=== PATIENT | female | born 1945 | race Caucasian/White ===

== ENCOUNTER 2022-06-09 08:57 | Emergency (ER) | payer OTHER ==
[~2022-06-09] VITALS: Ht 162.6 cm; Wt 63.0 kg
[2022-06-09] MEDS ORDERED: SODIUM CHLORIDE 0.9% 1,000 ML IV ONE (10:30)
[2022-06-09 11:18] LABS: Urine Bacteria MOD /hpf (None Seen); Urine Blood TRACE /uL (Negative); Urine Budding Yeast LOADED /hpf (None Seen); Urine Mucus FEW (None Seen); Urine Specific Gravity 1.022 (1.001-1.035); Urine WBC 146 /hpf (0 - 5)
[2022-06-09 11:31] LABS: Albumin 4.2 g/dL (3.4-5.0); Calcium 9.9 mg/dL (8.5-10.1); Potassium 4.3 mmol/L (3.5-5.1)
[2022-06-09 11:36] LABS: BUN/Creatinine Ratio 24.4; Bilirubin, Total 0.5 mg/dL (0.2-1.0); Total Protein 8.1 g/dL (6.4-8.2)
[2022-06-09 12:06] LABS: Basophils # (auto) 0.1 10 ^3/uL (0-0.2); Basophils % (auto) 1.1 % (0.0-2.0); Eosinophils # (auto) 0 10 ^3/uL (0-0.8); Eosinophils % (auto) 0.2 % (0.0-7.0); Hemoglobin 14.6 g/dL (12.2-16.2); Lymphocytes # (auto) 1.8 10 ^3/uL (0.4-5.4); Mean Corpuscular Hemoglobin 31.2 pg (28.0-32.0); Mean Corpuscular Hgb Conc. 33.2 g/dL (32.0-36.0); Monocytes # (auto) 0.6 10 ^3/uL (0-1.3); Monocytes % (auto) 6.3 % (0.0-12.0); Neutrophils # (auto) 6.8 10 ^3/uL (1.6-8.6); Neutrophils % (auto) 73.4 % (37.0-80.0); Nucleated Red Blood Cells % 0.2 %; Red Blood Cells 4.68 10^6/uL (4.0-5.20); Red Cell Distribution Width 13.8 % (11.8-14.3); White Blood Cell 9.2 10^3/uL (4.4-10.8)
[2022-06-09] MEDS ORDERED: ONDANSETRON HCL 4 MG/2 ML VIAL IV ONE ×3 (14:00→23:00)
[2022-06-09] MEDS ORDERED: MORPHINE SULFATE INJ 2 MG/ml SYRG IV ONE (14:00)
[2022-06-09] MEDS ORDERED: cefTRIAXone 1GM/50ML D5W 50 ML IV ONE ×2 (14:15→14:30)
[2022-06-09] MEDS ORDERED: HYDROmorphone HCL 2 MG/ML VL/or syr IV ONE ×2 (18:45→23:00)
[2022-06-10] MEDS ORDERED: ONDANSETRON HCL 4 MG/2 ML VIAL IV ONE (03:45)
[2022-06-10] MEDS ORDERED: HYDROmorphone HCL 2 MG/ML VL/or syr IV ONE (03:45)
[2022-06-10 03:47] VITALS: BP 116/54
== END 2022-06-10 03:40 | disposition short-term general hospital (02) ==
LOC: ER 08:57 → EDBD 08:57 → ER 06-10 03:40
DX: G93.41 Metabolic encephalopathy (principal); R53.1 Weakness; N39.0 Urinary tract infection, site not specified; E11.9 Type 2 diabetes mellitus without complications; Z90.710 Acquired absence of both cervix and uterus; Z20.822 Contact with and (suspected) exposure to COVID-19
CPT/HCPCS: 36415; 70450; 71250; 72192; 80053; 81001; 82962; 83605; 83880; 84484; 87040; 87426; 93005; 96365; 96375; 96376; 99285; J0696; J1170; J2270; J2405; J7030

== ENCOUNTER 2022-06-11 21:49 | Emergency (ER) | payer OTHER ==
[~2022-06-11] VITALS: Ht 165.1 cm; Wt 154.0 kg
[2022-06-11] MEDS ORDERED: TETANUS-DIPTH-ACEL PERTUSSIS 0.5ML SYR Tdap IM ONE (22:45)
[2022-06-11 23:18] LABS: Basophils # (auto) 0 10 ^3/uL (0-0.2); Basophils % (auto) 0.4 % (0.0-2.0); Eosinophils # (auto) 0 10 ^3/uL (0-0.8); Eosinophils % (auto) 0.1 % (0.0-7.0); Hematocrit 42.2 % (36.0-46.0); Hemoglobin 13.8 g/dL (12.2-16.2); Lymphocytes # (auto) 1.2 10 ^3/uL (0.4-5.4); Lymphocytes % (auto) 11.8 % (10.0-50.0); Mean Corpuscular Hemoglobin 30.6 pg (28.0-32.0); Mean Corpuscular Hgb Conc. 32.6 g/dL (32.0-36.0); Monocytes # (auto) 0.6 10 ^3/uL (0-1.3); Monocytes % (auto) 5.5 % (0.0-12.0); Neutrophils # (auto) 8.5 10 ^3/uL (1.6-8.6); Neutrophils % (auto) 82.2 % (37.0-80.0); Red Blood Cells 4.49 10^6/uL (4.0-5.20); Red Cell Distribution Width 13.5 % (11.8-14.3); White Blood Cell 10.3 10^3/uL (4.4-10.8)
[2022-06-11 23:33] LABS: INR 0.96 (0.9-1.15); Partial Thromboplastin Time 25.4 sec (24.6-33.4)
[2022-06-11 23:38] LABS: Albumin 3.6 g/dL (3.4-5.0); Calcium 8.9 mg/dL (8.5-10.1); Potassium 4.3 mmol/L (3.5-5.1)
[2022-06-11 23:41] LABS: BUN/Creatinine Ratio 27.4; Bilirubin, Total 0.5 mg/dL (0.2-1.0); Total Protein 7.1 g/dL (6.4-8.2)
[2022-06-12 01:01] VITALS: BP 159/71
== END 2022-06-12 02:44 | disposition home or self-care (01) ==
LOC: EDBD 21:49 → ER 21:49
DX: S01.01XA Laceration without foreign body of scalp, initial encounter (principal); S50.311A Abrasion of right elbow, initial encounter; R51.9 Headache, unspecified; E11.9 Type 2 diabetes mellitus without complications; R94.31 Abnormal electrocardiogram [ECG] [EKG]; Z90.710 Acquired absence of both cervix and uterus; W01.0XXA Fall on same level from slipping, tripping and stumbling without subsequent striking against object, initial encounter; Y93.89 Activity, other specified; Y92.89 Other specified places as the place of occurrence of the external cause; Y99.8 Other external cause status
CPT/HCPCS: 12001; 36415; 70450; 71045; 72125; 73080; 80053; 84484; 85025; 85610; 85730; 90471; 90715; 93005

== ENCOUNTER 2022-06-16 07:07 | Inpatient (IN) | payer OTHER ==
[2022-06-16] VITALS (31 sets, daily range): BP systolic 85–187; BP diastolic 20–75
[~2022-06-16] VITALS: Ht 165.1 cm; Wt 73.0 kg
[2022-06-16] MEDS: SODIUM CHLORIDE 0.9% 1,000 ML IV SCH ×2 (01:46→13:37)
[2022-06-16] MEDS ORDERED: IOHEXOL 350 MG/ML 100ML IJ ONE (07:42)
[2022-06-16] MEDS ORDERED: MORPHINE SULFATE 4 MG/ML SYR/VIAL IV ONE (07:45)
[2022-06-16] MEDS ORDERED: ONDANSETRON HCL 4 MG/2 ML VIAL IV ONE (07:45)
[2022-06-16 08:09] LABS: Basophils # (auto) 0.1 10 ^3/uL (0-0.2); Eosinophils # (auto) 0.1 10 ^3/uL (0-0.8); Mean Corpuscular Hemoglobin 30.7 pg (28.0-32.0)
[2022-06-16 08:10] LABS: Basophils % (auto) 0.5 % (0.0-2.0); Eosinophils % (auto) 0.3 % (0.0-7.0); Hematocrit 51.2 % (36.0-46.0); Hemoglobin 15.4 g/dL (12.2-16.2); Lymphocytes # (auto) 2.8 10 ^3/uL (0.4-5.4); Lymphocytes % (auto) 13.5 % (10.0-50.0); Mean Corpuscular Hgb Conc. 30.1 g/dL (32.0-36.0); Mean Corpuscular Volume 101.8 fL (80.0-100.0); Monocytes # (auto) 0.9 10 ^3/uL (0-1.3); Monocytes % (auto) 4.1 % (0.0-12.0); Neutrophils # (auto) 17.2 10 ^3/uL (1.6-8.6); Neutrophils % (auto) 81.6 % (37.0-80.0); Red Blood Cells 5.03 10^6/uL (4.0-5.20)
[2022-06-16] MEDS ORDERED: SODIUM CHLORIDE 0.9% 1,000 ML IV ONE ×3 (08:15→09:45)
[2022-06-16] MEDS ORDERED: MIDAZOLAM HCL 2MG/2ML 2ml VIAL (1mg/ml) IV ONE (08:15)
[2022-06-16 08:26] LABS: Albumin 3.9 g/dL (3.4-5.0); BUN/Creatinine Ratio 16.4; Calcium 9.7 mg/dL (8.5-10.1); Potassium 4.6 mmol/L (3.5-5.1)
[2022-06-16 08:28] LABS: Bilirubin, Total 0.4 mg/dL (0.2-1.0); Total Protein 8.2 g/dL (6.4-8.2)
[2022-06-16] MEDS ORDERED: SODIUM BICARBONATE 8.4 % INJ 50ML VIAL IV ONE (08:45)
[2022-06-16] MEDS ORDERED: ETOMIDATE (2MG/ML) 20ML VIAL IV ONE (09:00)
[2022-06-16] MEDS ORDERED: SUCCINYLCHOLINE CHLORIDE 20 MG/ML 10ML VIAL IV ONE (09:00)
[2022-06-16] MEDS: MIDAZOLAM DRIP 50 mg/50mL 50 ML IV SCH ×3 (09:10→23:42)
[2022-06-16 09:27] LABS: Lactic Acid w/Reflex 5.8 mmol/L (0.4-2.0)
[2022-06-16 09:45] LABS: Urine Bacteria FEW /hpf (None Seen); Urine Blood 1+ /uL (Negative); Urine Budding Yeast LOADED /hpf (None Seen); Urine Mucus FEW (None Seen); Urine Specific Gravity 1.037 (1.001-1.035); Urine WBC 53 /hpf (0 - 5)
[2022-06-16] MEDS ORDERED: INSULIN LANTUS (GLARGINE) 1 /0.01ml (100units/ml) SC ONE (09:45)
[2022-06-16] MEDS ORDERED: DEXTROSE (50%) 50ML SYRG IV PRN (09:45)
[2022-06-16] MEDS ORDERED: cefTRIAXone 1GM/50ML D5W 50 ML IV ONE (10:15)
[2022-06-16] MEDS ORDERED: AZITHROMYCIN 500MG/ 250ML 250 ML IV ONE (10:15)
[2022-06-16] MEDS: InsuLIN R (HUMAN) 100 UNITS in SODIUM CHL 0.9% 99 ML IV SCH (10:56)
[2022-06-16] MEDS: ACCU-CHEK COMFORT CURVE STRIP VI SCH ×9 (10:56→22:36)
[2022-06-16] MEDS: fentaNYL Drip 2500mCg/250mlNS 250 ML IV SCH (11:01)
[2022-06-16] MEDS ORDERED: SODIUM BICARB 50ML SYR 150 ML in SODIUM CHLORIDE 0.9% 1,000 ML IV ONE (12:15)
[2022-06-16] MEDS ORDERED: SODIUM BICARB 50ML SYR 150 ML in SOD CHL 0.45% 1,000 ML IV ONE (12:45)
[2022-06-16] MEDS ORDERED: ONDANSETRON HCL 4 MG/2 ML VIAL IV PRN (13:30)
[2022-06-16] MEDS ORDERED: DOCUSATE SOD 100 MG CAP PO PRN (13:30)
[2022-06-16] MEDS ORDERED: MORPHINE SULFATE INJ 2 MG/ml SYRG IV PRN (13:30)
[2022-06-17] VITALS (95 sets, daily range): BP systolic 74–143; BP diastolic 26–67
[2022-06-17] MEDS: InsuLIN R (HUMAN) 100 UNITS in SODIUM CHL 0.9% 99 ML IV SCH ×2
[2022-06-17] MEDS: ACCU-CHEK COMFORT CURVE STRIP VI SCH ×10 (00:10→17:44)
[2022-06-17] MEDS: fentaNYL Drip 2500mCg/250mlNS 250 ML IV SCH ×2 (01:56→18:18)
[2022-06-17 02:10] LABS: Anion Gap 10 (5-15); BUN/Creatinine Ratio 39.6; Blood Urea Nitrogen 19 mg/dL (7-18); Calcium 7.3 mg/dL (8.5-10.1); Carbon Dioxide 19 mmol/L (21-32); Chloride 119 mmol/L (98-107); GFR African American 161 mL/min; GFR Non-African American 133 mL/min; Glucose 123 mg/dL (74-106); Potassium 3.7 mmol/L (3.5-5.1); Sodium 148 mmol/L (136-145)
[2022-06-17] MEDS ORDERED: InsuLIN R (HUMAN) 100 UNITS in SODIUM CHL 0.9% 99 ML IV SCH ×2 (03:30→04:45)
[2022-06-17] MEDS: MIDAZOLAM DRIP 50 mg/50mL 50 ML IV SCH (03:40)
[2022-06-17 04:41] LABS: Basophils # (auto) 0 10 ^3/uL (0-0.2); Basophils % (auto) 0.3 % (0.0-2.0); Eosinophils # (auto) 0 10 ^3/uL (0-0.8); Eosinophils % (auto) 0.1 % (0.0-7.0); Hematocrit 34.6 % (36.0-46.0); Hemoglobin 11.1 g/dL (12.2-16.2); Lymphocytes # (auto) 1.2 10 ^3/uL (0.4-5.4); Lymphocytes % (auto) 9.1 % (10.0-50.0); Mean Corpuscular Hemoglobin 30.1 pg (28.0-32.0); Mean Corpuscular Hgb Conc. 31.9 g/dL (32.0-36.0); Mean Corpuscular Volume 94.1 fL (80.0-100.0); Monocytes # (auto) 1.2 10 ^3/uL (0-1.3); Monocytes % (auto) 9.3 % (0.0-12.0); Neutrophils # (auto) 10.4 10 ^3/uL (1.6-8.6); Neutrophils % (auto) 81.2 % (37.0-80.0); Red Blood Cells 3.68 10^6/uL (4.0-5.20); Red Cell Distribution Width 13.7 % (11.8-14.3); White Blood Cell 12.9 10^3/uL (4.4-10.8)
[2022-06-17] MEDS ORDERED: DEXTROSE (50%) 50ML SYRG IV PRN ×2 (04:45→15:45)
[2022-06-17 04:55] LABS: Alanine Aminotransferase 13 U/L (13-56); Albumin 2.3 g/dL (3.4-5.0); Anion Gap 9 (5-15); Aspartate Aminotransferase 14 U/L (15-37); Blood Urea Nitrogen 18 mg/dL (7-18); Calcium 7.7 mg/dL (8.5-10.1); Carbon Dioxide 22 mmol/L (21-32); Chloride 118 mmol/L (98-107); GFR African American 153 mL/min; GFR Non-African American 127 mL/min; Glucose 129 mg/dL (74-106); Potassium 3.4 mmol/L (3.5-5.1); Sodium 149 mmol/L (136-145)
[2022-06-17 04:58] LABS: Alkaline Phosphatase 93 U/L (45-117); Bilirubin, Total 0.3 mg/dL (0.2-1.0); Total Protein 5.1 g/dL (6.4-8.2)
[2022-06-17] MEDS: SODIUM CHLORIDE 0.9% 1,000 ML IV SCH ×2 (05:00→14:48)
[2022-06-17] MEDS ORDERED: InsuLIN REG 1unit/0.01ml Soln (100units/ml) SC SCH (07:00)
[2022-06-17] MEDS ORDERED: CEFP200T15 PO (09:29)
[2022-06-17] MEDS ORDERED: CALC-437 OR (09:29)
[2022-06-17] MEDS ORDERED: CLOP75TA70 PO (09:29)
[2022-06-17] MEDS ORDERED: EMPA1TAB3 PO (09:29)
[2022-06-17] MEDS ORDERED: LISI2.5T47 PO (09:29)
[2022-06-17] MEDS ORDERED: VENL37.588 PO (09:29)
[2022-06-17] MEDS ORDERED: TRAZ100T3 PO (09:29)
[2022-06-17] MEDS ORDERED: GLIM-5 PO (09:29)
[2022-06-17] MEDS ORDERED: TAMO20TA9 PO (09:29)
[2022-06-17] MEDS ORDERED: ATOR10TA52 PO (09:29)
[2022-06-17] MEDS: ENOXAPARIN SOD 40 MG/0.4 ML SYRINGE SC SCH (10:06)
[2022-06-17] MEDS: INSULIN LANTUS (GLARGINE) 1 /0.01ml (100units/ml) SC SCH (10:10)
[2022-06-17] MEDS ORDERED: POTASSIUM EFFERVESENT TAB 25 MEQ GT ONE (15:45)
[2022-06-17] MEDS ORDERED: AZITHROMYCIN 500MG/ 250ML 250 ML IV ONE (15:45)
[2022-06-17] MEDS ORDERED: cefTRIAXone 1GM/50ML D5W 50 ML IV ONE (15:45)
[2022-06-17] MEDS ORDERED: FAMOTIDINE (10MG/ML) 2ML VL IV ONE (15:45)
[2022-06-17] MEDS: SOD CHL 0.45% WITH 20MEQ KCL 1,000 ML IV SCH (16:15)
[2022-06-17] MEDS: InsuLIN REG 1unit/0.01ml Soln (100units/ml) SC SCH (17:44)
[2022-06-18] VITALS (70 sets, daily range): BP systolic 90–192; BP diastolic 26–103
[2022-06-18] MEDS: MIDAZOLAM DRIP 50 mg/50mL 50 ML IV SCH (01:09)
[2022-06-18 03:52] LABS: Basophils # (auto) 0.1 10 ^3/uL (0-0.2); Basophils % (auto) 0.4 % (0.0-2.0); Eosinophils # (auto) 0 10 ^3/uL (0-0.8); Eosinophils % (auto) 0.2 % (0.0-7.0); Hematocrit 36.1 % (36.0-46.0); Hemoglobin 11.3 g/dL (12.2-16.2); Lymphocytes # (auto) 1.7 10 ^3/uL (0.4-5.4); Lymphocytes % (auto) 12.5 % (10.0-50.0); Mean Corpuscular Hemoglobin 30.5 pg (28.0-32.0); Mean Corpuscular Hgb Conc. 31.3 g/dL (32.0-36.0); Mean Corpuscular Volume 97.4 fL (80.0-100.0); Monocytes % (auto) 7.9 % (0.0-12.0); Neutrophils # (auto) 10.6 10 ^3/uL (1.6-8.6); Red Blood Cells 3.71 10^6/uL (4.0-5.20); Red Cell Distribution Width 14.6 % (11.8-14.3); White Blood Cell 13.4 10^3/uL (4.4-10.8)
[2022-06-18 04:09] LABS: Potassium 3.6 mmol/L (3.5-5.1)
[2022-06-18 04:16] LABS: BUN/Creatinine Ratio 34.5; Calcium 8.6 mg/dL (8.5-10.1)
[2022-06-18] MEDS: SOD CHL 0.45% WITH 20MEQ KCL 1,000 ML IV SCH (05:05)
[2022-06-18] MEDS: InsuLIN REG 1unit/0.01ml Soln (100units/ml) SC SCH ×4 (06:00→18:00)
[2022-06-18] MEDS: ACCU-CHEK COMFORT CURVE STRIP VI SCH ×4 (06:04→18:01)
[2022-06-18] MEDS ORDERED: METOPROLOL TARTRATE 1MG/1ML-5ML VIAL IV ONE (08:45)
[2022-06-18] MEDS: cefTRIAXone 1GM/50ML D5W 50 ML IV SCH (08:53)
[2022-06-18] MEDS ORDERED: ALBUTEROL SULF 2.5 MG/0.5ML(0.5%) NEB SOLN ONE (09:19)
[2022-06-18] MEDS ORDERED: ALBUTEROL SULF 2.5 MG/0.5ML(0.5%) NEB SOLN NEB ONE (09:45)
[2022-06-18] MEDS: FAMOTIDINE (10MG/ML) 2ML VL IV SCH (10:31)
[2022-06-18] MEDS: ENOXAPARIN SOD 40 MG/0.4 ML SYRINGE SC SCH (10:32)
[2022-06-18] MEDS: AZITHROMYCIN 500MG/ 250ML 250 ML IV SCH (10:33)
[2022-06-18] MEDS: INSULIN LANTUS (GLARGINE) 1 /0.01ml (100units/ml) SC SCH (10:50)
[2022-06-18] MEDS: HYDROcodone-ACET 5/325MG TAB PO PRN ×2 (13:54→20:00)
[2022-06-18] MEDS ORDERED: ACETAMINOPHEN 500 MG TAB PO PRN (15:15)
[2022-06-18] MEDS: LACTULOSE 20Gm/30ML SOLN PO SCH (17:58)
[2022-06-18] MEDS: FREE WATER GT SCH (17:59)
[2022-06-18] MEDS ORDERED: LACTULOSE 20Gm/30ML SOLN PO SCH (18:00)
[2022-06-18] MEDS: LABETALOL HCL 5 MG/ML 4ML SYRINGE IV PRN ×2 (18:22→22:30)
[2022-06-18] MEDS: Glucerna 1.2 Cal 1Liter BOTTLE GT SCH (20:00)
[2022-06-19] VITALS (38 sets, daily range): BP systolic 98–222; BP diastolic 43–119
[2022-06-19] MEDS: LABETALOL HCL 5 MG/ML 4ML SYRINGE IV PRN ×3 (02:15→10:38)
[2022-06-19 04:45] LABS: Basophils # (auto) 0.1 10 ^3/uL (0-0.2); Basophils % (auto) 0.6 % (0.0-2.0); Eosinophils # (auto) 0 10 ^3/uL (0-0.8); Eosinophils % (auto) 0.3 % (0.0-7.0); Hematocrit 36.1 % (36.0-46.0); Hemoglobin 11.8 g/dL (12.2-16.2); Lymphocytes # (auto) 1.4 10 ^3/uL (0.4-5.4); Lymphocytes % (auto) 9.4 % (10.0-50.0); Mean Corpuscular Hemoglobin 30.6 pg (28.0-32.0); Mean Corpuscular Hgb Conc. 32.6 g/dL (32.0-36.0); Mean Corpuscular Volume 93.9 fL (80.0-100.0); Monocytes # (auto) 0.9 10 ^3/uL (0-1.3); Monocytes % (auto) 6.1 % (0.0-12.0); Neutrophils # (auto) 12.1 10 ^3/uL (1.6-8.6); Neutrophils % (auto) 83.6 % (37.0-80.0); Nucleated Red Blood Cells % 0.1 %; Red Blood Cells 3.85 10^6/uL (4.0-5.20); Red Cell Distribution Width 13.9 % (11.8-14.3); White Blood Cell 14.5 10^3/uL (4.4-10.8)
[2022-06-19 04:52] LABS: Potassium 3.2 mmol/L (3.5-5.1)
[2022-06-19 05:00] LABS: Albumin 2.4 g/dL (3.4-5.0); Bilirubin, Total 0.4 mg/dL (0.2-1.0); Calcium 8.8 mg/dL (8.5-10.1)
[2022-06-19] MEDS: LACTULOSE 20Gm/30ML SOLN PO SCH ×2 (06:00)
[2022-06-19] MEDS: FREE WATER GT SCH ×4 (06:00→18:55)
[2022-06-19] MEDS: ACCU-CHEK COMFORT CURVE STRIP VI SCH ×4 (06:03→17:21)
[2022-06-19] MEDS: InsuLIN REG 1unit/0.01ml Soln (100units/ml) SC SCH ×4 (06:04→17:36)
[2022-06-19] MEDS: cefTRIAXone 1GM/50ML D5W 50 ML IV SCH (10:41)
[2022-06-19] MEDS: ENOXAPARIN SOD 40 MG/0.4 ML SYRINGE SC SCH (10:42)
[2022-06-19] MEDS: AZITHROMYCIN 500MG/ 250ML 250 ML IV SCH (10:42)
[2022-06-19] MEDS: FAMOTIDINE (10MG/ML) 2ML VL IV SCH (10:42)
[2022-06-19] MEDS: INSULIN LANTUS (GLARGINE) 1 /0.01ml (100units/ml) SC SCH (10:56)
[2022-06-19] MEDS ORDERED: LISINOPRIL 10 MG TAB PO ONE (15:15)
[2022-06-19] MEDS ORDERED: PIPERACILLIN-TAZOB 3.375GM 100 ML IV ONE (15:15)
[2022-06-19] MEDS: POTASSIUM CHL 20MEQ/100ML 100 ML IV SCH ×2 (17:39→20:00)
[2022-06-19] MEDS: Glucerna 1.2 Cal 1Liter BOTTLE GT SCH (20:00)
[2022-06-19] MEDS: PIPERACILLIN-TAZOB 3.375GM 100 ML IV SCH (22:00)
[2022-06-20] VITALS (22 sets, daily range): BP systolic 93–185; BP diastolic 38–74
[2022-06-20] MEDS: HYDROcodone-ACET 5/325MG TAB PO PRN ×2 (02:02→18:02)
[2022-06-20 04:17] LABS: Basophils # (auto) 0 10 ^3/uL (0-0.2); Basophils % (auto) 0.2 % (0.0-2.0); Eosinophils # (auto) 0 10 ^3/uL (0-0.8); Hematocrit 37.4 % (36.0-46.0); Hemoglobin 12.4 g/dL (12.2-16.2); Lymphocytes # (auto) 1.2 10 ^3/uL (0.4-5.4); Lymphocytes % (auto) 11.9 % (10.0-50.0); Mean Corpuscular Hemoglobin 31.3 pg (28.0-32.0); Mean Corpuscular Hgb Conc. 33.2 g/dL (32.0-36.0); Mean Corpuscular Volume 94.3 fL (80.0-100.0); Monocytes # (auto) 0.8 10 ^3/uL (0-1.3); Monocytes % (auto) 7.6 % (0.0-12.0); Neutrophils # (auto) 7.9 10 ^3/uL (1.6-8.6); Neutrophils % (auto) 80.3 % (37.0-80.0); Nucleated Red Blood Cells % 0.1 %; Red Blood Cells 3.96 10^6/uL (4.0-5.20); Red Cell Distribution Width 13.8 % (11.8-14.3); White Blood Cell 9.9 10^3/uL (4.4-10.8)
[2022-06-20 04:36] LABS: INR 0.97 (0.9-1.15); Partial Thromboplastin Time 22.3 sec (24.6-33.4)
[2022-06-20 04:43] LABS: Calcium 8.9 mg/dL (8.5-10.1); Potassium 3.5 mmol/L (3.5-5.1)
[2022-06-20 04:47] LABS: BUN/Creatinine Ratio 36.1
[2022-06-20] MEDS: PIPERACILLIN-TAZOB 3.375GM 100 ML IV SCH ×3 (05:53→22:30)
[2022-06-20] MEDS: FREE WATER GT SCH ×4 (06:00→18:02)
[2022-06-20] MEDS: ACCU-CHEK COMFORT CURVE STRIP VI SCH ×4 (06:15→18:02)
[2022-06-20] MEDS: InsuLIN REG 1unit/0.01ml Soln (100units/ml) SC SCH ×4 (06:17→18:07)
[2022-06-20] MEDS: ENOXAPARIN SOD 40 MG/0.4 ML SYRINGE SC SCH (10:00)
[2022-06-20] MEDS: FAMOTIDINE (10MG/ML) 2ML VL IV SCH (10:23)
[2022-06-20] MEDS: LISINOPRIL 10 MG TAB PO SCH (10:25)
[2022-06-20] MEDS: INSULIN LANTUS (GLARGINE) 1 /0.01ml (100units/ml) SC SCH (12:10)
[2022-06-21] MEDS: ACCU-CHEK COMFORT CURVE STRIP VI SCH ×5 (00:22→23:50)
[2022-06-21] MEDS: FREE WATER GT SCH ×5 (00:30→23:55)
[2022-06-21] MEDS: InsuLIN REG 1unit/0.01ml Soln (100units/ml) SC SCH ×5 (00:35→23:52)
[2022-06-21 05:07] VITALS: BP 138/65
[2022-06-21] MEDS: PIPERACILLIN-TAZOB 3.375GM 100 ML IV SCH ×3 (06:17→22:05)
[2022-06-21 06:33] LABS: Potassium 3.5 mmol/L (3.5-5.1)
[2022-06-21 06:41] LABS: BUN/Creatinine Ratio 64.3; Calcium 8.5 mg/dL (8.5-10.1)
[2022-06-21] MEDS: HYDROcodone-ACET 5/325MG TAB PO PRN ×2 (07:45→20:09)
[2022-06-21 09:00] VITALS: BP 133/55
[2022-06-21] MEDS: FAMOTIDINE (10MG/ML) 2ML VL IV SCH (09:27)
[2022-06-21] MEDS: LISINOPRIL 10 MG TAB PO SCH (09:27)
[2022-06-21] MEDS: ENOXAPARIN SOD 40 MG/0.4 ML SYRINGE SC SCH (09:27)
[2022-06-21] MEDS: INSULIN LANTUS (GLARGINE) 1 /0.01ml (100units/ml) SC SCH (09:33)
[2022-06-21] MEDS: LABETALOL HCL 5 MG/ML 4ML SYRINGE IV PRN (12:33)
[2022-06-21 13:00] VITALS: BP 193/69
[2022-06-21 15:31] VITALS: BP 109/53
[2022-06-21 17:00] VITALS: BP 143/54
[2022-06-21 22:00] VITALS: BP 139/73
[2022-06-22 05:00] VITALS: BP 125/67
[2022-06-22] MEDS: FREE WATER GT SCH ×4 (06:00→23:40)
[2022-06-22] MEDS: PIPERACILLIN-TAZOB 3.375GM 100 ML IV SCH ×3 (06:21→21:36)
[2022-06-22] MEDS: HYDROcodone-ACET 5/325MG TAB PO PRN ×2 (06:22→19:49)
[2022-06-22] MEDS: ACCU-CHEK COMFORT CURVE STRIP VI SCH ×4 (06:22→23:40)
[2022-06-22] MEDS: InsuLIN REG 1unit/0.01ml Soln (100units/ml) SC SCH ×4 (06:24→23:46)
[2022-06-22 09:00] VITALS: BP 111/64
[2022-06-22] MEDS: FAMOTIDINE (10MG/ML) 2ML VL IV SCH (09:21)
[2022-06-22] MEDS: ENOXAPARIN SOD 40 MG/0.4 ML SYRINGE SC SCH (09:21)
[2022-06-22] MEDS: LISINOPRIL 10 MG TAB PO SCH (09:22)
[2022-06-22] MEDS: INSULIN LANTUS (GLARGINE) 1 /0.01ml (100units/ml) SC SCH (09:26)
[2022-06-22 10:45] LABS: Basophils # (auto) 0.1 10 ^3/uL (0-0.2); Basophils % (auto) 0.6 % (0.0-2.0); Eosinophils # (auto) 0.1 10 ^3/uL (0-0.8); Eosinophils % (auto) 1.7 % (0.0-7.0); Hematocrit 31.2 % (36.0-46.0); Hemoglobin 10.5 g/dL (12.2-16.2); Lymphocytes # (auto) 1.5 10 ^3/uL (0.4-5.4); Lymphocytes % (auto) 17.6 % (10.0-50.0); Mean Corpuscular Hemoglobin 31.5 pg (28.0-32.0); Mean Corpuscular Hgb Conc. 33.5 g/dL (32.0-36.0); Monocytes # (auto) 0.8 10 ^3/uL (0-1.3); Monocytes % (auto) 9.7 % (0.0-12.0); Neutrophils # (auto) 5.8 10 ^3/uL (1.6-8.6); Neutrophils % (auto) 70.4 % (37.0-80.0); Red Blood Cells 3.32 10^6/uL (4.0-5.20); Red Cell Distribution Width 13.8 % (11.8-14.3); White Blood Cell 8.3 10^3/uL (4.4-10.8)
[2022-06-22] MEDS: PANTOPRAZOLE 40 MG/10 ML VIAL INJ IV SCH ×2 (11:08→21:36)
[2022-06-22] MEDS: SODIUM CHLORIDE 0.9% 1,000 ML IV SCH ×2 (11:08→23:05)
[2022-06-22 11:22] LABS: Bilirubin, Total 0.4 mg/dL (0.2-1.0)
[2022-06-22 11:24] LABS: Potassium 2.8 mmol/L (3.5-5.1)
[2022-06-22] MEDS ORDERED: POTASSIUM CHLORIDE 40 MEQ, LIDOCAINE 1% (LOCAL ANESTH.) 4 ML in SODIUM CHL 0.9% 250 ML IV ONE (11:30)
[2022-06-22 13:00] VITALS: BP 122/44
[2022-06-22 17:00] VITALS: BP 104/46
[2022-06-22 22:00] VITALS: BP 142/77
[2022-06-23] MEDS: HYDROcodone-ACET 5/325MG TAB PO PRN ×3 (02:08→20:43)
[2022-06-23 05:00] VITALS: BP 136/61
[2022-06-23] MEDS: FREE WATER GT SCH (05:00)
[2022-06-23] MEDS: PIPERACILLIN-TAZOB 3.375GM 100 ML IV SCH ×3 (05:01→23:05)
[2022-06-23 05:29] LABS: Basophils # (auto) 0 10 ^3/uL (0-0.2); Basophils % (auto) 0.7 % (0.0-2.0); Eosinophils # (auto) 0.2 10 ^3/uL (0-0.8); Eosinophils % (auto) 2.7 % (0.0-7.0); Hemoglobin 10.4 g/dL (12.2-16.2); Lymphocytes # (auto) 1.7 10 ^3/uL (0.4-5.4); Lymphocytes % (auto) 24.6 % (10.0-50.0); Mean Corpuscular Hemoglobin 31.1 pg (28.0-32.0); Mean Corpuscular Hgb Conc. 33.4 g/dL (32.0-36.0); Monocytes # (auto) 0.7 10 ^3/uL (0-1.3); Monocytes % (auto) 10.2 % (0.0-12.0); Neutrophils # (auto) 4.2 10 ^3/uL (1.6-8.6); Neutrophils % (auto) 61.8 % (37.0-80.0); Nucleated Red Blood Cells % 0.1 %; Red Blood Cells 3.33 10^6/uL (4.0-5.20); Red Cell Distribution Width 13.6 % (11.8-14.3); White Blood Cell 6.8 10^3/uL (4.4-10.8)
[2022-06-23 05:36] LABS: Calcium 7.7 mg/dL (8.5-10.1)
[2022-06-23] MEDS: ACCU-CHEK COMFORT CURVE STRIP VI SCH ×4 (06:16→23:56)
[2022-06-23] MEDS: InsuLIN REG 1unit/0.01ml Soln (100units/ml) SC SCH ×5 (06:21→23:52)
[2022-06-23] MEDS: PANTOPRAZOLE 40 MG/10 ML VIAL INJ IV SCH ×2 (08:56→21:39)
[2022-06-23] MEDS: INSULIN LANTUS (GLARGINE) 1 /0.01ml (100units/ml) SC SCH (08:59)
[2022-06-23 09:00] VITALS: BP 104/52
[2022-06-23] MEDS ORDERED: LIDOCAINE VISCOUS 2% 15ML UD ONE (10:31)
[2022-06-23] MEDS ORDERED: SODIUM CHLORIDE LOCK 10 ML ONE (10:31)
[2022-06-23] MEDS: fentaNYL CITRATE 100 MCG/2 ML VL ONE ×2 (11:23→11:26)
[2022-06-23] MEDS: diphenhdrAMINE HCL 50 MG/1 ML VL ONE ×2 (11:23→11:25)
[2022-06-23] MEDS: MIDAZOLAM HCL 5 MG/ML-1ML VIAL ONE ×2 (11:23→11:27)
[2022-06-23] MEDS ORDERED: GOLYTELY 4L KIT PO ONE (12:00)
[2022-06-23] MEDS ORDERED: POTASSIUM CHLORIDE 40 MEQ, LIDOCAINE 1% (LOCAL ANESTH.) 4 ML in SODIUM CHL 0.9% 250 ML IV ONE (12:15)
[2022-06-23] MEDS: SODIUM CHLORIDE 0.9% 1,000 ML IV SCH (12:37)
[2022-06-23 17:00] VITALS: BP 103/73
[2022-06-23 21:52] VITALS: BP 128/50
[2022-06-24] MEDS: HYDROcodone-ACET 5/325MG TAB PO PRN ×3 (01:39→17:15)
[2022-06-24] MEDS: SODIUM CHLORIDE 0.9% 1,000 ML IV SCH (01:45)
[2022-06-24 04:58] VITALS: BP 136/46
[2022-06-24] MEDS: InsuLIN REG 1unit/0.01ml Soln (100units/ml) SC SCH ×4 (05:42→21:54)
[2022-06-24] MEDS: ACCU-CHEK COMFORT CURVE STRIP VI SCH ×4 (05:52→21:55)
[2022-06-24] MEDS: PIPERACILLIN-TAZOB 3.375GM 100 ML IV SCH (05:53)
[2022-06-24] MEDS ORDERED: MAGNESIUM CITRATE SOLUTION 300 ML BTL PO ONE (06:00)
[2022-06-24] MEDS ORDERED: GOLYTELY 4L KIT PO ONE (06:00)
[2022-06-24 06:21] LABS: Basophils # (auto) 0.1 10 ^3/uL (0-0.2); Basophils % (auto) 0.3 % (0.0-2.0); Eosinophils # (auto) 0.1 10 ^3/uL (0-0.8); Eosinophils % (auto) 0.8 % (0.0-7.0); Hematocrit 32.2 % (36.0-46.0); Hemoglobin 10.5 g/dL (12.2-16.2); Lymphocytes # (auto) 1.6 10 ^3/uL (0.4-5.4); Mean Corpuscular Hemoglobin 30.5 pg (28.0-32.0); Mean Corpuscular Hgb Conc. 32.7 g/dL (32.0-36.0); Mean Corpuscular Volume 93.3 fL (80.0-100.0); Monocytes # (auto) 1.2 10 ^3/uL (0-1.3); Monocytes % (auto) 7.8 % (0.0-12.0); Neutrophils # (auto) 12.8 10 ^3/uL (1.6-8.6); Neutrophils % (auto) 81.1 % (37.0-80.0); Red Blood Cells 3.45 10^6/uL (4.0-5.20); Red Cell Distribution Width 13.6 % (11.8-14.3); White Blood Cell 15.7 10^3/uL (4.4-10.8)
[2022-06-24 06:35] LABS: Calcium 7.7 mg/dL (8.5-10.1); Potassium 3.2 mmol/L (3.5-5.1)
[2022-06-24 06:38] LABS: BUN/Creatinine Ratio 9.4
[2022-06-24] MEDS: PANTOPRAZOLE 40 MG/10 ML VIAL INJ IV SCH (08:50)
[2022-06-24 09:00] VITALS: BP 113/65
[2022-06-24] MEDS ORDERED: fentaNYL CITRATE 100 MCG/2 ML VL ONE (09:05)
[2022-06-24] MEDS ORDERED: diphenhdrAMINE HCL 50 MG/1 ML VL ONE (09:05)
[2022-06-24] MEDS ORDERED: MIDAZOLAM HCL 5 MG/ML-1ML VIAL ONE (09:05)
[2022-06-24] MEDS ORDERED: SODIUM CHLORIDE LOCK 0 ML ONE (09:06)
[2022-06-24] MEDS: INSULIN LANTUS (GLARGINE) 1 /0.01ml (100units/ml) SC SCH (10:00)
[2022-06-24] MEDS ORDERED: POTASSIUM EFFERVESENT TAB 25 MEQ PO ONE (11:00)
[2022-06-24 12:16] LABS: Basophils # (auto) 0.1 10 ^3/uL (0-0.2); Basophils % (auto) 0.4 % (0.0-2.0); Eosinophils # (auto) 0.1 10 ^3/uL (0-0.8); Eosinophils % (auto) 0.7 % (0.0-7.0); Hematocrit 32.5 % (36.0-46.0); Hemoglobin 10.4 g/dL (12.2-16.2); Lymphocytes # (auto) 1.3 10 ^3/uL (0.4-5.4); Lymphocytes % (auto) 7.7 % (10.0-50.0); Mean Corpuscular Volume 93.8 fL (80.0-100.0); Neutrophils # (auto) 14.6 10 ^3/uL (1.6-8.6); Neutrophils % (auto) 85.2 % (37.0-80.0); Red Blood Cells 3.46 10^6/uL (4.0-5.20); Red Cell Distribution Width 13.6 % (11.8-14.3); White Blood Cell 17.1 10^3/uL (4.4-10.8)
[2022-06-24 13:00] VITALS: BP 123/47
[2022-06-24 17:00] VITALS: BP 136/50
[2022-06-24 22:00] VITALS: BP 118/52
[2022-06-24] MEDS: PANTOPRAZOLE 40 MG TAB PO SCH (22:06)
[2022-06-25] MEDS: HYDROcodone-ACET 5/325MG TAB PO PRN ×3 (02:37→17:58)
[2022-06-25 05:00] VITALS: BP 138/69
[2022-06-25] MEDS: InsuLIN REG 1unit/0.01ml Soln (100units/ml) SC SCH ×4 (05:16→23:39)
[2022-06-25 05:30] LABS: Calcium 8.1 mg/dL (8.5-10.1); Potassium 3.8 mmol/L (3.5-5.1)
[2022-06-25] MEDS: ACCU-CHEK COMFORT CURVE STRIP VI SCH ×4 (05:40→23:40)
[2022-06-25 09:17] VITALS: BP 126/76
[2022-06-25] MEDS: levoFLOXacin 500 MG TAB PO SCH (09:44)
[2022-06-25] MEDS: PANTOPRAZOLE 40 MG TAB PO SCH ×2 (09:44→22:30)
[2022-06-25] MEDS: INSULIN LANTUS (GLARGINE) 1 /0.01ml (100units/ml) SC SCH (09:47)
[2022-06-25 11:24] LABS: Basophils # (auto) 0.1 10 ^3/uL (0-0.2); Basophils % (auto) 0.4 % (0.0-2.0); Eosinophils # (auto) 0.1 10 ^3/uL (0-0.8); Eosinophils % (auto) 0.9 % (0.0-7.0); Hematocrit 32.7 % (36.0-46.0); Hemoglobin 10.4 g/dL (12.2-16.2); Lymphocytes # (auto) 1.4 10 ^3/uL (0.4-5.4); Mean Corpuscular Hemoglobin 30.3 pg (28.0-32.0); Mean Corpuscular Hgb Conc. 31.8 g/dL (32.0-36.0); Mean Corpuscular Volume 95.2 fL (80.0-100.0); Monocytes # (auto) 1.2 10 ^3/uL (0-1.3); Monocytes % (auto) 8.3 % (0.0-12.0); Neutrophils # (auto) 11.3 10 ^3/uL (1.6-8.6); Neutrophils % (auto) 80.4 % (37.0-80.0); Red Blood Cells 3.44 10^6/uL (4.0-5.20)
[2022-06-25] MEDS ORDERED: VENLAFAXINE HCL 37.5mg XR cap PO ONE (11:30)
[2022-06-25 13:00] VITALS: BP 148/59
[2022-06-25 16:55] VITALS: BP 154/67
[2022-06-25 22:00] VITALS: BP 148/53
[2022-06-26] MEDS ORDERED: LOPERAMIDE HCL 2 MG CAP/TAB PO ONE (03:30)
[2022-06-26] MEDS ORDERED: LOPERAMIDE HCL 2 MG CAP/TAB PO PRN (03:30)
[2022-06-26 05:00] VITALS: BP 101/50
[2022-06-26] MEDS: InsuLIN REG 1unit/0.01ml Soln (100units/ml) SC SCH ×3 (06:00→18:12)
[2022-06-26] MEDS: ACCU-CHEK COMFORT CURVE STRIP VI SCH ×3 (06:47→18:12)
[2022-06-26 08:34] VITALS: BP 139/50
[2022-06-26] MEDS ORDERED: VENLAFAXINE HCL 37.5mg XR cap PO SCH (10:00)
[2022-06-26] MEDS: PANTOPRAZOLE 40 MG TAB PO SCH (10:15)
[2022-06-26] MEDS: levoFLOXacin 500 MG TAB PO SCH (10:15)
[2022-06-26] MEDS: INSULIN LANTUS (GLARGINE) 1 /0.01ml (100units/ml) SC SCH (10:22)
[2022-06-26] MEDS ORDERED: GLIMEPIRIDE 2 MG TAB PO ONE (12:30)
[2022-06-26 13:19] VITALS: BP 142/51
[2022-06-26] MEDS ORDERED: TAMOXIFEN CITR 10 MG TAB PO ONE (13:30)
[2022-06-26 17:11] VITALS: BP 149/45
[2022-06-26 20:43] VITALS: BP 151/51
[2022-06-27] MEDS ORDERED: GLIMEPIRIDE 2 MG TAB PO SCH (08:00)
[2022-06-27] MEDS ORDERED: TAMOXIFEN CITR 10 MG TAB PO SCH (10:00)
== END 2022-06-26 21:50 | DRG 871 ==
LOC: EDUNIT# 07:07 → ER 07:07 → EDBD 07:07 → TELE 13:25 → ICU WEST 17:16 → TELE-EAST 06-20 21:55 → EAST 06-24 12:29
PROVIDERS: ADMIT Internal Medicine; ATTEND Internal Medicine
PROC: 06HY33Z Insertion of Infusion Device into Lower Vein, Percutaneous Approach (ICD-10-PCS; principal; 2022-06-16)
PROC: 0BH17EZ Insertion of Endotracheal Airway into Trachea, Via Natural or Artificial Opening (ICD-10-PCS; 2022-06-16)
PROC: 5A1945Z Respiratory Ventilation, 24-96 Consecutive Hours (ICD-10-PCS; 2022-06-16)
PROC: 0DB98ZX Excision of Duodenum, Via Natural or Artificial Opening Endoscopic, Diagnostic (ICD-10-PCS; 2022-06-23)
DX: A41.9 Sepsis, unspecified organism (principal); E11.10 Type 2 diabetes mellitus with ketoacidosis without coma; J18.9 Pneumonia, unspecified organism; J96.00 Acute respiratory failure, unspecified whether with hypoxia or hypercapnia; K21.01 Gastro-esophageal reflux disease with esophagitis, with bleeding; K29.71 Gastritis, unspecified, with bleeding; K29.81 Duodenitis with bleeding; E78.5 Hyperlipidemia, unspecified; I10 Essential (primary) hypertension; E87.6 Hypokalemia; K44.9 Diaphragmatic hernia without obstruction or gangrene; F32.A Depression, unspecified; E11.9 Type 2 diabetes mellitus without complications; Z90.710 Acquired absence of both cervix and uterus; Z79.84 Long term (current) use of oral hypoglycemic drugs; Z79.02 Long term (current) use of antithrombotics/antiplatelets; Z85.3 Personal history of malignant neoplasm of breast
CPT/HCPCS: 31500; 36415; 36556; 36600; 43239; 71045; 71260; 73501; 74177; 80048; 80053; 81001; 82010; 82805; 82962; 83036; 83605; 83735; 83880; 84484; 85025; 85610; 85730; 86850; 86900; 86901; 87040; 87070; 87081; 87205; 87493; 92507; 92610; 93005; 94002; 94003; 96361; 96374; 96375; 97110; 97116; 97163; 97530; 99291; C9113; G0378; J0330; J0696; J1815; J2001; J2250; J2405; J2543; J3480; J3490